=== PATIENT | female | born 1935 | race Caucasian/White ===

== ENCOUNTER 2016-10-26 09:27 | Outpatient (CLI) ==
[2014-12-26 14:20] VITALS: BMI 23.0
[2016-10-26 10:08] VITALS: BP 142/54; TEMP 96.7
[2016-10-26] MEDS: PROLIA SUBCUT STA (10:19)
== END 2016-10-26 09:28 | disposition home or self-care (01) ==
LOC: OPMED 09:27
PROVIDERS: ATTEND Family Medicine
DX: M81.0 Age-related osteoporosis without current pathological fracture (principal)
CPT/HCPCS: 96372

== ENCOUNTER 2017-12-02 09:59 | Outpatient (CLI) ==
[2014-12-26 14:20] VITALS: BMI 23.0
[2017-12-02] MEDS ORDERED: PROLIA SUBCUT STA (10:29)
[2017-12-02 14:10] VITALS: BP 123/76; TEMP 97.2
== END 2017-12-02 10:00 | disposition home or self-care (01) ==
LOC: OPMED 09:59
PROVIDERS: ATTEND Family Medicine
DX: M81.0 Age-related osteoporosis without current pathological fracture (principal)
CPT/HCPCS: 96372